=== PATIENT | female | born 1930 | race Caucasian/White ===

== ENCOUNTER 2021-08-27 09:17 | Emergency (ER) | payer MEDICARE ==
[~2021-08-27 09:17] MED LIST: ROBITUSSIN AC480 ML PO; TESSALON PERLE100 MG PO
[2021-08-27 10:32] LABS: HEMOGLOBIN 12.4 gm/dl (12.3-15.3); RED BLOOD COUNT 4.55 M/UL (4.00-5.10); WHITE BLOOD COUNT 6.5 K/UL (4.5-11.0)
[2021-08-27 11:04] LABS: BUN/CREATININE RATIO 16 (0-10)
[2021-08-27] MEDS ORDERED: PREDNISONE 50 M50 MG PO (12:01)
== END 2021-08-27 12:16 | disposition home or self-care (01) ==
LOC: ER1 09:17
PROVIDERS: Physician Assistant
DX: J40 Bronchitis, not specified as acute or chronic (principal); I50.9 Heart failure, unspecified; Z20.822 Contact with and (suspected) exposure to COVID-19
CPT/HCPCS: 0240U; 71045; 80053; 82550; 82553; 83874; 83880; 84484; 85025; 93005; 94664; 94760; 96374; 99285; J2930

== ENCOUNTER 2021-09-22 07:21 | Emergency (ER) | payer MEDICARE ==
[~2021-09-22 07:21] MED LIST changes: +PREDNISONE 50 M50 MG PO
[2021-09-22 08:38] LABS: HEMOGLOBIN 12.7 gm/dl (12.3-15.3); RED BLOOD COUNT 4.74 M/UL (4.00-5.10); WHITE BLOOD COUNT 7.1 K/UL (4.5-11.0)
[2021-09-22] MEDS ORDERED: OMNICEF 300 MG300 MG PO (12:37)
== END 2021-09-22 13:38 | disposition home or self-care (01) ==
LOC: ER1 07:21
PROVIDERS: Physician Assistant
DX: N39.0 Urinary tract infection, site not specified (principal); Z20.822 Contact with and (suspected) exposure to COVID-19; I51.9 Heart disease, unspecified; J45.909 Unspecified asthma, uncomplicated
CPT/HCPCS: 71045; 80053; 81001; 83605; 83690; 85025; 87077; 87086; 87186; 94664; 96374; 99284; J0696; U0002

== ENCOUNTER 2021-09-30 13:19 | Emergency (ER) | payer MEDICARE ==
[~2021-09-30 13:19] MED LIST changes: +OMNICEF 300 MG300 MG PO
[2021-09-30 14:04] LABS: HEMOGLOBIN 12.1 gm/dl (12.3-15.3); RED BLOOD COUNT 4.52 M/UL (4.00-5.10)
[2021-09-30] MEDS ORDERED: BUMETANIDE2 MG PO ×2 (15:14→16:47)
== END 2021-09-30 17:35 | disposition home or self-care (01) ==
LOC: ER1 13:19
PROVIDERS: Preventive Medicine Occupational Medicine
DX: I50.9 Heart failure, unspecified (principal); N28.9 Disorder of kidney and ureter, unspecified; Z20.822 Contact with and (suspected) exposure to COVID-19
CPT/HCPCS: 71045; 80053; 81001; 82550; 82553; 83874; 83880; 84484; 85025; 85652; 86140; 87086; 93005; 96374; 99285; U0002